=== PATIENT | male | born 1950 | race Caucasian/White ===

== ENCOUNTER 2017-05-06 07:16 | Inpatient (IN) | payer MEDICARE ==
[2017-05-06] VITALS (8 sets, daily range): BP systolic 74–116; BP diastolic 57–78; PULSE 89–105; RESP 16–18; TEMP 97.8; O2SAT 97–99
[~2017-05-06] VITALS: Ht 177.8 cm; Wt 84.0 kg
[2017-05-06] MEDS ORDERED: SODIUM CHLORIDE 0.9% FLUSH 10 ML FLUSH IVF PRN (07:30)
--- NOTE | 2017-05-06 07:32 | PD ---
HPI Chief Complaint: Seizure Time Seen by Provider: 07:30 Travel History International Travel<30 days: No Contact w/Intl Traveler<30days: No Traveled to known affect area: No History of Present Illness HPI This is a 66-year-old male with no reported past medical history, presents here after having what sounds like a seizure. According to paramedics the stated that he had uncontrolled tonic-clonic type activity. He was incontinent to urine. The patient was confused and altered when paramedics arrived. He is now back to his baseline. The patient denies any previous history of seizures. He denies any history of heavy alcohol use. The patient states he had a concussion when he was in his teens although has not had any previous significant traumatic brain injury. There are no other complaints time my examination. [facility] Social History Tobacco Use: No (denied) Allergies-Medications (Allergen,Severity, Reaction): Coded Allergies: No Known Allergies (Verified Allergy, Unknown, 05/06/17) Reported Meds & Prescriptions Reported Meds & Active Scripts Active No Active Prescriptions or Reported Medications Review of Systems Except as stated in HPI: all other systems reviewed are Neg General / Constitutional: No: Fever, Chills HENT: No: Headaches, Neck Pain Cardiovascular: No: Chest Pain or Discomfort, Palpitations Respiratory: No: Cough, Shortness of Breath Gastrointestinal: No: Nausea, Vomiting Genitourinary: Positive: Incontinence, No: Dysuria Musculoskeletal: No: Weakness, Pain Neurologic: Positive: Seizures (times one), No: Weakness, Dizziness, Headache Physical Exam Narrative GENERAL: Well-developed well-nourished male in no acute respiratory distress. SKIN: Focused skin assessment warm/dry. HEAD: Atraumatic. Normocephalic. EYES: Extraocular muscles were intact No scleral icterus. No injection or drainage. ENT: No nasal bleeding or discharge. Mucous membranes pink and moist. NECK: Trachea midline. Supple. CARDIOVASCULAR: Regular rate and rhythm. No murmur appreciated. RESPIRATORY: No accessory muscle use. Clear to auscultation. Breath sounds equal bilaterally. GASTROINTESTINAL: Abdomen soft, non-tender, nondistended. Hepatic and splenic margins not palpable. MUSCULOSKELETAL: No obvious deformities. No clubbing. No cyanosis. No edema. NEUROLOGICAL: Awake and alert. No obvious cranial nerve deficits. Motor grossly within normal limits. Normal speech. PSYCHIATRIC: Appropriate mood and affect; insight and judgment normal. Data Data Last Documented VS Vital Signs Date Time Temp Pulse Resp B/P (MAP) Pulse Ox O2 Delivery O2 Flow Rate FiO2 05/06/17 10:28 100 18 87/62 (70) 102 18 74/58 (63) 102 17 83/57 (66) 05/06/17 10:00 97.8 98 Room Air Orders Orders Complete Blood Count With Diff (05/06/17 07:18) Alcohol (Ethanol) (05/06/17 07:18) Drug Screen, Random Urine (05/06/17 07:18) Ct Brain W/O Iv Contrast(Rout) (05/06/17 ) Blood Glucose (05/06/17 07:18) Ecg Monitoring (05/06/17 07:18) Iv Access Insert/Monitor (05/06/17 07:18) Oximetry (05/06/17 07:18) Comprehensive Metabolic Panel (05/06/17 07:18) Sodium Chloride 0.9% Flush (Ns Flush) (05/06/17 07:30) Sodium Chlor 0.9% 1000 Ml Inj (Ns 1000 M (05/06/17 10:15) Admit To Inpatient (05/06/17 ) Code Status (05/06/17 10:14) Vital Signs (Adult) LAXMI.Q4H (05/06/17 10:14) Neuro Checks . ORDERED (05/06/17 10:14) Activity Oob With Assistance (05/06/17 10:14) Road Production General Manager / Telemetry LAXMI.Q8H (05/06/17 10:14) Intake + Output 06,14,22 (05/06/17 10:14) Notify Dr: Other (05/06/17 10:14) Resp Oxygen Nat C Titrat 1-4 L (05/06/17 ) Sodium Chloride 0.9% Flush (Ns Flush) (05/06/17 10:15) Sodium Chloride 0.9% Flush (Ns Flush) (05/06/17 21:00) Inpatient Certification (05/06/17 ) ^ Seizure Precautions (05/06/17 10:14) ^ Fall Precautions (05/06/17 10:14) Orthostatic Vital Signs (05/06/17 10:14) Admit Order (Ed Use Only) (05/06/17 10:41) Ondansetron Inj (Zofran Inj) (05/06/17 10:45) Creatine Kinase (Cpk) (05/06/17 10:41) Creatine Kinase (Cpk) (05/06/17 16:41) Troponin I (05/06/17 10:41) Troponin I (05/06/17 16:41) Electrocardiogram (05/06/17 10:41) Acetaminophen (Tylenol) (05/06/17 10:45) Vital Signs (Adult) Q4H (05/06/17 10:41) Activity Bed Rest (05/06/17 ) Neuro Checks Q4H (05/06/17 10:41) Sodium Chloride 0.9% Flush (Ns Flush) (05/06/17 10:45) Sodium Chloride 0.9% Flush (Ns Flush) (05/06/17 21:00) Eeg Study (05/06/17 ) Labs Laboratory Tests Test 05/06/17 07:30 White Blood Count 18.4 TH/MM3 Red Blood Count 2.78 MIL/MM3 Hemoglobin 8.8 GM/DL Hematocrit 26.1 % Mean Corpuscular Volume 93.7 FL Mean Corpuscular Hemoglobin 31.5 PG Mean Corpuscular Hemoglobin Concent 33.6 % Red Cell Distribution Width 13.7 % Platelet Count 247 TH/MM3 Mean Platelet Volume 8.0 FL Neutrophils (%) (Auto) 84.0 % Lymphocytes (%) (Auto) 9.2 % Monocytes (%) (Auto) 6.5 % Eosinophils (%) (Auto) 0.0 % Basophils (%) (Auto) 0.3 % Neutrophils # (Auto) 15.4 TH/MM3 Lymphocytes # (Auto) 1.7 TH/MM3 Monocytes # (Auto) 1.2 TH/MM3 Eosinophils # (Auto) 0.0 TH/MM3 Basophils # (Auto) 0.1 TH/MM3 CBC Comment AUTO DIFF Differential Comment AUTO DIFF CONFIRMED Platelet Estimate NORMAL Platelet Morphology Comment NORMAL Blood Urea Nitrogen 32 MG/DL Creatinine 2.38 MG/DL Random Glucose 254 MG/DL Total Protein 5.5 GM/DL Albumin 2.7 GM/DL Calcium Level 7.4 MG/DL Alkaline Phosphatase 77 U/L Aspartate Amino Transf (AST/SGOT) 12 U/L Alanine Aminotransferase (ALT/SGPT) 17 U/L Total Bilirubin 0.3 MG/DL Sodium Level 126 MEQ/L Potassium Level 4.4 MEQ/L Chloride Level 91 MEQ/L Carbon Dioxide Level 15.0 MEQ/L Anion Gap 20 MEQ/L Estimat Glomerular Filtration Rate 27 ML/MIN Protein Corrected Calcium 8.3 MG/DL Ethyl Alcohol Level LESS THAN 3 MG/DL MDM Medical Decision Making Medical Screen Exam Complete: Yes Emergency Medical Condition: Yes Differential Diagnosis New onset seizure versus metabolic derangement versus intracranial mass Narrative Course 66-year-old male who states he has no past medical history, presents today with complaints of what sounds like new onset seizure. The patient's states that he was getting up to use the restroom when he had a tonic-clonic episode and was incontinent to urine. The patient's head CT is negative. He is noted to be in acute renal failure. Patient also noted to be anemic. His blood pressure did drop into the 80s systolic. He appears to be extremely dry on exam. His blood sugar was also elevated over 200. The patient be admitted to the resident service. I discussed the case in detail with Dr. Cole and her resident team. At this point he looks like he is new onset diabetic with acute kidney injury, anemia and seizure versus syncope. Diagnosis Primary Impression: seizure versus syncope Additional Impressions: Diabetes mellitus, new onset Acute kidney injury Anemia Admitting Information Admitting Physician Requests: Admit Scripts No Active Prescriptions or Reported Meds Gregory Mason MD May 06, 2017 07:32
[2017-05-06 08:00] LABS: AUTOMATED NEUTROPHIL # 15.4 TH/MM3 (1.8-7.7); BASOPHIL # 0.1 TH/MM3 (0-0.2); BASOPHIL % 0.3 % (0.0-2.0); HEMATOCRIT 26.1 % (39.0-51.0); HEMOGLOBIN 8.8 GM/DL (13.0-17.0); LYMPH % 9.2 % (9.0-44.0); LYMPHOCYTE # 1.7 TH/MM3 (1.0-4.8); MEAN CELL VOLUME 93.7 FL (80.0-100.0); MEAN CORPUSCULAR HEMOGLOBIN 31.5 PG (27.0-34.0); MEAN CORPUSCULAR HGB CONC 33.6 % (32.0-36.0); MONO % 6.5 % (0.0-8.0); MONOCYTE # 1.2 TH/MM3 (0-0.9); PLATELET COUNT 247 TH/MM3 (150-450); RED BLOOD COUNT 2.78 MIL/MM3 (4.50-5.90); RED CELL DISTRIBUTION WIDTH 13.7 % (11.6-17.2); WHITE BLOOD COUNT 18.4 TH/MM3 (4.0-11.0)
[2017-05-06 08:15] LABS: ALBUMIN 2.7 GM/DL (3.4-5.0); ALT (GPT) 17 U/L (12-78); AST (GOT) 12 U/L (15-37); BLOOD UREA NITROGEN 32 MG/DL (7-18); CALCIUM 7.4 MG/DL (8.5-10.1); CHLORIDE 91 MEQ/L (98-107); CREATININE 2.38 MG/DL (0.60-1.30); GLOMERULAR FILTRATION RATE 27 ML/MIN (>89); GLUCOSE,RANDOM 254 MG/DL (74-106); SODIUM (NA) 126 MEQ/L (136-145)
[2017-05-06 08:44] LABS: ALKALINE PHOSPHATASE 77 U/L (45-117); CALCIUM-PROTEIN CORRECTED 8.3 MG/DL (8.5-10.1); TOTAL BILIRUBIN ADULT 0.3 MG/DL (0.2-1.0); TOTAL PROTEIN 5.5 GM/DL (6.4-8.2)
--- NOTE | 2017-05-06 09:18 | RADRPT ---
EXAM DATE/TIME: 05/06/2017 08:39 [facility] COMPARISON: No previous studies available for comparison. INDICATIONS : New onset seizure. RADIATION DOSE: 33.76 CTDIvol (mGy) MEDICAL HISTORY : None SURGICAL HISTORY : None. ENCOUNTER: Initial ACUITY: 1 day PAIN SCALE: 0/10 LOCATION: cranial TECHNIQUE: Multiple contiguous axial images were obtained of the head. Using automated exposure control and adj ustment of the mA and/or kV according to patient size, radiation dose was kept as low as reasonably a chievable to obtain optimal diagnostic quality images. DICOM format image data is available electro nically for review and comparison. FINDINGS: CEREBRUM: The ventricles are normal for age. No evidence of midline shift, mass lesion, hemorrhage or acute in farction. No extra-axial fluid collections are seen. POSTERIOR FOSSA: The cerebellum and brainstem are intact. The 4th ventricle is midline. The cerebellopontine angle i s unremarkable. EXTRACRANIAL: The visualized portion of the orbits is intact. SKULL: The calvaria is intact. No evidence of skull fracture. CONCLUSION: No acute intracranial disease. Abhinav Richter MD on May 06, 2017 at 9:15 Board Certified Radiologist. This report was verified electronically.
[2017-05-06] MEDS ORDERED: SODIUM CHLOR 0.9% 1000 ML INJ 1,000 ML IV ONE (10:15)
[2017-05-06] MEDS ORDERED: SODIUM CHLORIDE 0.9% FLUSH 10 ML FLUSH IV FLUSH PRN ×2 (10:15→10:45)
--- NOTE | 2017-05-06 10:24 | HHI.HP ---
HPI Service Family Medicine Primary Care Physician No Primary Care Physician Admission Diagnosis Diagnoses: (1) Seizure Chief Complaint: new onset seizures International Travel<30 Days: No Contact w/Intl Traveler<30days: No Known Affected Area: No History of Present Illness Mr Garcia is a 66YO male from [employer] with no reported PMHx who p/w recent complaints about low back pain that seemed to have resolved, but then had new onset seizures beginning yesterday. He is accompanied by his who reports that when he sat up yesterday at 8AM in bed his hands began to shake and then both hands contracted into his upper chest, his eyes rolled back and he passed out. After several minutes he would appear to respond to commands again. He had incontinence of urine at that time. The same or similar sequence of events occurred again at 1253PM and after bathing at 8PM yesterday, then at 0430AM and 0530AM this morning. He reports he did not lose consciousness during these episodes; however, his reports he has a fear of doctors and hospitals and did not agree to see a doctor until this morning. Pt has not had a BM since yesterday and has some tenderness in LLQ. He has no PCP. Denies hitting his head or other s/s of trauma during these episodes. His reports he had the flu that began on April 03 and continued for 10 days. Denies CP, SOB ( except when the episodes occur), N/V/D, constipation, black or bloody stools, or DVT pain. Review of Systems Constitutional: COMPLAINS OF: Diaphoretic episodes, Fatigue, Weight loss ( unexplained wt loss over the last 2 months), DENIES: Fever, Weight gain, Chills , Dizziness, Change in appetite Eyes: DENIES: Blurred vision, Diplopia, Double Vision Ears, nose, mouth, throat: COMPLAINS OF: Nasal discharge, DENIES: Tinnitus, Vertigo, Oral lesions, Throat pain Respiratory: COMPLAINS OF: Cough, DENIES: Snoring, Wheezing, Hemoptysis, Shortness of breath Cardiovascular: COMPLAINS OF: Syncope, DENIES: Chest pain, Palpitations Gastrointestinal: COMPLAINS OF: Abdominal pain, DENIES: Black stools, Bloody stools, Constipation, Diarrhea, Nausea, Vomiting Genitourinary: COMPLAINS OF: Urinary incontinence (with seizure), Testicular Swelling (hernia >2 years has been enlarging), DENIES: Sexual dysfunction, Urinary frequency, Urgency Musculoskeletal: COMPLAINS OF: Back pain (low back pain not too long ago), DENIES: Joint pain, Muscle aches Integumentary: DENIES: Rash Hematologic/lymphatic: DENIES: Bruising Neurologic: COMPLAINS OF: Seizures, DENIES: Headache, Paresthesias, Speech Problems, Tremor, Poor Balance Past Family Social History Past Medical History none Past Surgical History none Reported Medications alkaseltzer Allergies: Coded Allergies: No Known Allergies (Verified Allergy, Unknown, 05/06/17) Active Ordered Medications Current Medications Medications (Trade) Dose Ordered Sig/Krishna Route Start Time Stop Time Status Last Admin (NS Flush) 2 ml UNSCH PRN IVF 05/06/17 07:30 05/06/17 07:33 Family History mother is 90 father of liver cancer--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 SKIN: No rashes, ecchymoses or lesions. Cool and dry. HEAD: Atraumatic. Normocephalic. No temporal or scalp tenderness. EYES: Pupils equal round and reactive. Extraocular motions intact. No scleral icterus. No injection or drainage. ENT: Nose without bleeding, purulent drainage or septal hematoma. Throat without erythema, tonsillar hypertrophy or exudate. Uvula midline. Airway patent. NECK: Trachea midline. No lymphadenopathy. Supple, nontender, no meningeal signs. CARDIOVASCULAR: Regular rate and rhythm without murmurs, gallops, or rubs. RESPIRATORY: Clear to auscultation. Breath sounds equal bilaterally. No wheezes , rales, or rhonchi. No increased WOB. GASTROINTESTINAL: Abdomen not soft, but not tense or distended; mildly tender to palpation in the LLQ, nondistended. No hepato-splenomegaly, or palpable masses. No guarding. Normal BS. GENITOURINARY: grossly enlarged scrotum the size of a cantaloupe with tense underside on the left side, minimally reducible. MUSCULOSKELETAL: Extremities without clubbing, cyanosis, or edema. No joint tenderness, effusion, or edema noted. No calf tenderness. NEUROLOGICAL: Awake and alert. Normal cranial nerves II through XII exam. Motor and sensory grossly within normal limits. Five out of 5 muscle strength in all muscle groups. Normal speech. No pronator drift. Laboratory Laboratory Tests Test 05/06/17 07:30 White Blood Count 18.4 Red Blood Count 2.78 Hemoglobin 8.8 Hematocrit 26.1 Mean Corpuscular Volume 93.7 Mean Corpuscular Hemoglobin 31.5 Mean Corpuscular Hemoglobin Concent 33.6 Red Cell Distribution Width 13.7 Platelet Count 247 Mean Platelet Volume 8.0 Neutrophils (%) (Auto) 84.0 Lymphocytes (%) (Auto) 9.2 Monocytes (%) (Auto) 6.5 Eosinophils (%) (Auto) 0.0 Basophils (%) (Auto) 0.3 Neutrophils # (Auto) 15.4 Lymphocytes # (Auto) 1.7 Monocytes # (Auto) 1.2 Eosinophils # (Auto) 0.0 Basophils # (Auto) 0.1 CBC Comment AUTO DIFF Differential Comment AUTO DIFF CONFIRMED Platelet Estimate NORMAL Platelet Morphology Comment NORMAL Blood Urea Nitrogen 32 Creatinine 2.38 Random Glucose 254 Total Protein 5.5 Albumin 2.7 Calcium Level 7.4 Alkaline Phosphatase 77 Aspartate Amino Transf (AST/SGOT) 12 Alanine Aminotransferase (ALT/SGPT) 17 Total Bilirubin 0.3 Sodium Level 126 Potassium Level 4.4 Chloride Level 91 Carbon Dioxide Level 15.0 Anion Gap 20 Estimat Glomerular Filtration Rate 27 Protein Corrected Calcium 8.3 Ethyl Alcohol Level LESS THAN 3 Result Diagram: 05/06/17 0730 05/06/17729 Imaging Last Impressions Scrotum Ultrasound 05/06/17 0000 Signed Impressions: Service Date/Time: Saturday, May 06, 2017 12:09 - CONCLUSION: 1. Both testicles are within normal limits. 2. Bilateral inguinal hernias with loops of bowel entering the scrotal sac. 3. Small right hydrocele. 4. Bilateral varicoceles 5. Mildly heterogeneous left epididymis. Lopez Whittington MD Head CT 05/06/17 0000 Signed Impressions: Service Date/Time: Saturday, May 06, 2017 08:39 - CONCLUSION: No acute intracranial disease. Abhinav Richter MD Abdomen/Pelvis CT 05/06/17 0000 Signed Impressions: Service Date/Time: Saturday, May 06, 2017 12:41 - CONCLUSION: 1. Large infrarenal abdominal aortic aneurysm measuring 9.8 x 7.5 x 12.3 cm. Suspect rupture of the aneurysm as there is a large amount of left-sided retroperitoneal hemorrhage displacing the left kidney anteriorly. Angiogram recommended. 2. Large right inguinal hernia containing fat and multiple bowel loops. No signs of strangulation. Abhinav Richter MD Septic Shock Reassessment Heart: Regular rate and rhythm Lungs: Clear Skin: Warm, Dry Peripheral Pulses: Weak Right Dorsalis Pedis Weak Left Dorsalis Pedis Bounding Right Radial Bounding Left Radial Capillary Refill: <2 seconds Caprini VTE Risk Assessment Caprini VTE Risk Assessment: Mod/High Risk (score >= 2) Caprini Risk Assessment Model Point Value = 1 Point Value = 2 Point Value = 3 Point Value = 5 Age 41-60 Minor surgery BMI > 25 kg/m2 Swollen legs Varicose veins or History of unexplained or recurrent spontaneous Oral contraceptives or hormone replacement Sepsis (< 1 month) Serious lung disease, including pneumonia (< 1 month) Abnormal pulmonary function Acute myocardial infarction Congestive heart failure (< 1 month) History of inflammatory bowel disease Medical patient at bed rest Age 61-74 Arthroscopic surgery Major open surgery (> 45 min) Laparoscopic surgery (> 45 min) Malignancy Confined to bed (> 72 hours) Immobilizing plaster cast Central venous access Age >= 75 History of VTE Family history of VTE Factor V Leiden Prothrombin [id number] Lupus anticoagulant Anticardiolipin antibodies Elevated serum homocysteine Heparin-induced thrombocytopenia Other congenital or acquired thrombophilia Stroke (< 1 month) Elective arthroplasty Hip, pelvis, or leg fracture Acute spinal cord injury (< 1 month) Prophylaxis Regimen Total Risk Factor Score Risk Level Prophylaxis Regimen 0-1 Low Early ambulation 2 Moderate Order ONE of the following: *Sequential Compression Device (SCD) *Heparin 5000 units SQ BID 3-4 Higher Order ONE of the following medications: *Heparin 5000 units SQ TID *Enoxaparin/Lovenox 40 mg SQ daily (WT < 150 kg, CrCl > 30 mL/min) *Enoxaparin/Lovenox 30 mg SQ daily (WT < 150 kg, CrCl > 10-29 mL/min) *Enoxaparin/Lovenox 30 mg SQ BID (WT < 150 kg, CrCl > 30 mL/min) AND/OR *Sequential Compression Device (SCD) 5 or more Highest Order ONE of the following medications: *Heparin 5000 units SQ TID (Preferred with Epidurals) *Enoxaparin/Lovenox 40 mg SQ daily (WT < 150 kg, CrCl > 30 mL/min) *Enoxaparin/Lovenox 30 mg SQ daily (WT < 150 kg, CrCl > 10-29 mL/min) *Enoxaparin/Lovenox 30 mg SQ BID (WT < 150 kg, CrCl > 30 mL/min) AND *Sequential Compression Device (SCD) Assessment and Plan Assessment and Plan 66YO male with no reported PMHx who p/w 2 days of new onset seizures and found to have LLQ tenderness and large right scrotal hernia on exam; WBC 18.4 and pulse of 105 on admit meeting SIRS criteria; and found to have a ruptured AAA, bilateral inguinal hernias and right scrotal hernia with bowel loops not strangulated on CT abdomen/pelvis. DDx: ruptured AAA, right scrotal hernia. Code Status FULL CODE Discussed Condition With Mina Cole and Davey Problem List: (1) Ruptured abdominal aortic aneurysm (AAA) ICD Codes: I71.3 - Abdominal aortic aneurysm, ruptured Status: Acute Plan: CT scan showing 9.8 x 7.5 x 12.3 cm infrarenal ruptured aortic aneurysm (2) Seizure ICD Codes: R56.9 - Unspecified convulsions Status: Acute Plan: Initial impression of tonic-clonic movements with shaking hands and contractions of arms with approx 3 minutes of inactivity vs post-ictal state of not following commands appears seizure-like -Neurology consulted; appreciate recs (3) Hyponatremia ICD Codes: E87.1 - Hypo-osmolality and hyponatremia Status: Acute Plan: Na at 126 on admit with his reporting that pt rarely if ever drinks anything besides his morning coffee -NS IVF bolus (4) Scrotal hernia ICD Codes: K40.90 - Unilateral inguinal hernia, without obstruction or gangrene , not specified as recurrent Status: Chronic Plan: Pt reports scrotal hernia has been existent for >4 years but has enlarged in the last 2 years -US as per report above -CT scan as per above (right sided with intestinal bowel loops not strangulated) (5) Anemia ICD Codes: D64.9 - Anemia, unspecified Status: Acute Plan: -Heme occult blood test on rectal exam negative -Serum heme occult ordered (6) Diabetes mellitus, new onset ICD Codes: E11.9 - Type 2 diabetes mellitus without complications Status: Acute Plan: Blood sugar on admit elevated to 254 -Await surgery before pursuing (7) Acute kidney injury ICD Codes: N17.9 - Acute kidney failure, unspecified Status: Acute Plan: Cr 2.38 on admit; likely 2/2 mass effect from AAA -IVF (8) FEN/GI/PPx Status: Acute Plan: Diet: NPO for surgery GI: none PPx: Bilateral SCDs; Heparin Physician Certification 2 Midnight Certification Type: Admission for Inpatient Services Order for Inpatient Services The services are ordered in accordance with Medicare regulations or non- Medicare payer requirements, as applicable. In the case of services not specified as inpatient-only, they are appropriately provided as inpatient services in accordance with the 2-midnight benchmark. Estimated LOS (days): 2 days is the estimated time the patient will need to remain in the hospital, assuming treatment plan goals are met and no additional complications. Post-Hospital Plan: Home Problem Qualifiers (1) Anemia: Qualified Codes: D64.9 - Anemia, unspecified Gama Handy MD R1 May 06, 2017 10:24
[2017-05-06] MEDS ORDERED: ACETAMINOPHEN 325 MG TAB PO PRN (10:45)
[2017-05-06] MEDS ORDERED: ONDANSETRON HCL 4 MG/2 ML VIAL IVP PRN (10:45)
[2017-05-06] MEDS ORDERED: SODIUM CHLOR 0.9% 1000 ML INJ 1,000 ML IV SCH (11:00)
--- NOTE | 2017-05-06 11:16 | HHI.FPPN ---
Subjective Remarks Pt. seen, examined and discussed with the medicine team. This is a 66 yo male here with his . Brought via [facility] due to seizure-like activity at home. describes three episodes where patient sat up and became a little sweaty and clenched his arms to his chest and was a little shaky and had delayed verbal responses. One episode occurred when he was standing to void his bladder; helped him ease to floor and he then went back to lay down. He was incontinent with the first episode but he states he did not lose consciousness with any of these events. called [facility] after the rist event but patient refused to be transported. After third episode he agreed to present to the hospital. He works as a [employer], smokes 1.5 ppd for over 40 years, occasional etoh, no illicits. Denies change in his stools and denies blood in urine. Minimal water intake. No known past medical illnesses, only surgery was on 5th finger, he has a hernia since the which is enlarging into his scrotum. Has been fearful of having surgery. NKDA, only medication is yolanda-seltzer cold. He had an upper respiratory illness for 10 days in the recent past. See History and physical examination for this admission for additional past, family, social history and ROS. Objective Vitals Vital Signs Date Time Temp Pulse Resp B/P (MAP) Pulse Ox O2 Delivery O2 Flow Rate FiO2 05/06/17 10:28 100 18 87/62 (70) 102 18 74/58 (63) 102 17 83/57 (66) 05/06/17 10:00 97.8 97 17 95/57 (70) 98 Room Air 05/06/17 08:20 97.8 92 16 116/78 (91) 98 Room Air 05/06/17 07:31 16 99 Room Air 05/06/17 07:25 105 17 99 Room Air 05/06/17 07:21 97.8 105 16 107/68 (81) 99 Result Diagram: 05/06/17 0730 05/06/17 0730 Imaging Last [address] 05/06/17 0000 Signed Impressions: Service Date/Time: Saturday, May 06, 2017 08:39 - CONCLUSION: No acute intracranial disease. Abhinav Richter MD Objective Remarks O. CONSTITUTIONAL/GEN: very pale, normally nourished, in NAD. EYES: conjunctiva pale, PERRLA, EOMI. ENT: Mouth and pharynx normal. Dentures, lower denture missing. NECK: supple LUNGS: clear A-P, respiratory effort is normal. CARDIOVASCULAR: Tachycardic without murmur or gallop. No significant edema. GI/ABD: BS +, nontender. : no CVA tenderness, massive hernia into the right scrotum, left testis palpable. Rectal exam is heme negative. NEURO: No focal deficits. SKIN: color pale, no rashes noted. HEME/LYMPH: no bruising, petechia or significant adenopathy MUSC: back is normal in appearance. Extremities are normal in appearance. PSYCH/MENTAL STATUS: Alert and oriented x 3. A/P Assessment and Plan 66 yo male with new onset seizure-like activity, possibly related to hypotension and micturition syncope, with ARF and anemia and massive right inguinal hernia. See orders. Attending Attestation Patient seen and examined. Case reviewed and discussed with the resident team. Agree with plan of care as discussed with me and documented in the resident note. Problem List: (1) Seizure ICD Codes: R56.9 - Unspecified convulsions Rae Cole MD May 06, 2017 11:16
--- NOTE | 2017-05-06 11:55 | EKG ---
Date Performed: 05/06/2017 Time Performed: 07:30:05 PTAGE: 66 years EKG: SINUS TACHYCARDIA NONSPECIFIC ST & T-WAVE ABNORMALITY ABNORMAL RHYTHM ECG NO PREVIOUS TRACING DOCTOR: Shine Kaminski Interpretating Date/Time 05/06/2017 11:53:11
[2017-05-06] MEDS ORDERED: HEPARIN SODIUM - SQ 10,000 UNITS/ML VIAL SQ SCH (12:00)
[2017-05-06 12:41] LABS: LACTIC ACID SEPSIS PROTOCOL 3.7 mmol/L (0.4-2.0)
--- NOTE | 2017-05-06 12:52 | RADRPT ---
EXAM DATE/TIME: 05/06/2017 12:09 [facility] COMPARISON: No previous studies available for comparison. INDICATIONS : Inguinal hernias bilaterally. MEDICAL HISTORY : Seizures. Abdominal pain. Testicular mass. SURGICAL HISTORY : None. ENCOUNTER: Initial ACUITY: >1 year PAIN SCORE: 3/10 LOCATION: Bilateral testicles. MEASUREMENTS: RIGHT TESTICLE: 4.1 x 1.9 x 4.0cm LEFT TESTICLE: 3.7 x 1.6 x 4.4cm FINDINGS: RIGHT TESTICLE: Homogeneous echotexture without intra or extratesticular mass. Blood flow is symmetric and within no rmal limits. Small hydrocele. There is a varicocele.. Epididymis is within normal limits. Also noted is a right inguinal hernia containing loops of bowel which are in the scrotal sac. LEFT TESTICLE: Homogeneous echotexture without intra or extratesticular mass. Blood flow is symmetric and within no rmal limits. No hydrocele. There is a varicocele. Epididymis is mildly heterogeneous.. Also noted is a left internal hernia containing loops of bowel going into the scrotal sac SCROTUM: Within normal limits. CONCLUSION: 1. Both testicles are within normal limits. 2. Bilateral inguinal hernias with loops of bowel entering the scrotal sac. 3. Small right hydrocele. 4. Bilateral varicoceles 5. Mildly heterogeneous left epididymis. Lopze Whittington MD on May 06, 2017 at 12:47 Board Certified Radiologist. This report was verified electronically.
--- NOTE | 2017-05-06 13:12 | RADRPT ---
EXAM DATE/TIME: 05/06/2017 12:41 [facility] COMPARISON: No previous studies available for comparison. INDICATIONS : Left lower abdomen pain today. ORAL CONTRAST: No oral contrast ingested. RADIATION DOSE: 6.77 CTDIvol (mGy) MEDICAL HISTORY : Seizures. SURGICAL HISTORY : None. ENCOUNTER: Initial ACUITY: 1 day PAIN SCALE: 8/10 LOCATION: Left lower quadrant TECHNIQUE: Volumetric scanning of the abdomen and pelvis was performed. Using automated exposure control and ad justment of the mA and/or kV according to patient size, radiation dose was kept as low as reasonably achievable to obtain optimal diagnostic quality images. DICOM format image data is available electro nically for review and comparison. FINDINGS: LOWER LUNGS: Small left pleural effusion. Left basilar atelectasis. LIVER: Homogeneous density without lesion. There is no dilation of the biliary tree. No calcified gallston es. SPLEEN: Normal size without lesion. PANCREAS: Within normal limits. KIDNEYS: Left kidney displaced anteriorly secondary to left retroperitoneal hemorrhage. There is no mass, sto ne, or hydronephrosis. ADRENAL GLANDS: Within normal limits. VASCULAR: Large infrarenal abdominal aortic aneurysm measures 10.3 x 9.1 cm and spans in the craniocaudal dimen imani 12.3 cm. There is hemorrhage in the retroperitoneum posterior to the left kidney which displaces the left kidney anteriorly measuring approximately 9.8 x 1.5 cm. BOWEL/MESENTERY: The stomach, small bowel, and colon demonstrate no acute abnormality. There is no free intraperitone al air or fluid. ABDOMINAL WALL: Within normal limits. RETROPERITONEUM: There is no lymphadenopathy. BLADDER: No wall thickening or mass. REPRODUCTIVE: Within normal limits. INGUINAL: Large right inguinal hernia containing bowel loops and fat. No signs of strangulation. Small fat-cont aining left inguinal hernia containing minimal fluid.. MUSCULOSKELETAL: Within normal limits for patient age. CONCLUSION: 1. Large infrarenal abdominal aortic aneurysm measuring 9.8 x 7.5 x 12.3 cm. Suspect rupture of the a neurysm as there is a large amount of left-sided retroperitoneal hemorrhage displacing the left kidne y anteriorly. Angiogram recommended. 2. Large right inguinal hernia containing fat and multiple bowel loops. No signs of strangulation. Abhinav Richter MD on May 06, 2017 at 13:03 Board Certified Radiologist. This report was verified electronically.
[2017-05-06] MEDS ORDERED: SODIUM CHLOR 0.9% 250 ML INJ 250 ML IV ONE (13:15)
--- NOTE | 2017-05-06 13:30 | PD.VS.CON ---
History of Present Illness Chief Complaint: syncope Consult Requested by: Dr. Mason, ED History of Present Illness 66 yo male with no known medical troubles "except coughing" who presented after a syncopal episode today. Got a CT A/P that showed a ruptured TAAA. Past/Family/Social History Past Medical History none per patient Past Surgical History none per patient Social History smoker Family History no known aneurysmal disease Home Medications No Active Prescriptions or Reported Meds Coded Allergies: No Known Allergies (Verified Allergy, Unknown, 05/06/17) Review of Systems Respiratory: COMPLAINS OF: Cough Neurologic: COMPLAINS OF: Seizures Physical Exam Vitals/I&O Date Time Temp Pulse Resp B/P (MAP) Pulse Ox O2 Delivery O2 Flow Rate FiO2 05/06/17 11:01 97.8 89 16 116/78 (91) 97 Room Air 05/06/17 10:28 100 18 87/62 (70) 102 18 74/58 (63) 102 17 83/57 (66) 05/06/17 10:00 97.8 97 17 95/57 (70) 98 Room Air 05/06/17 08:20 97.8 92 16 116/78 (91) 98 Room Air 05/06/17 07:31 16 99 Room Air 05/06/17 07:25 105 17 99 Room Air 05/06/17 07:21 97.8 105 16 107/68 (81) 99 05/06/17 05/06/17 05/06/17 07:00 15:00 23:00 Intake Total 1000 ml Balance 1000 ml Neuro: resting comfortably, no distress, HOOKS HEENT: NC/AT Neck: no JVD Heart: reg rate Lungs: clear B Abdomen: nontender, palpable pulsatile mass Extremities: HOOKS Laboratory Tests Test 05/06/17 07:30 05/06/17 12:00 White Blood Count 18.4 Red Blood Count 2.78 Hemoglobin 8.8 Hematocrit 26.1 Mean Corpuscular Volume 93.7 Mean Corpuscular Hemoglobin 31.5 Mean Corpuscular Hemoglobin Concent 33.6 Red Cell Distribution Width 13.7 Platelet Count 247 Mean Platelet Volume 8.0 Neutrophils (%) (Auto) 84.0 Lymphocytes (%) (Auto) 9.2 Monocytes (%) (Auto) 6.5 Eosinophils (%) (Auto) 0.0 Basophils (%) (Auto) 0.3 Neutrophils # (Auto) 15.4 Lymphocytes # (Auto) 1.7 Monocytes # (Auto) 1.2 Eosinophils # (Auto) 0.0 Basophils # (Auto) 0.1 CBC Comment AUTO DIFF Differential Comment AUTO DIFF CONFIRMED Platelet Estimate NORMAL Platelet Morphology Comment NORMAL Blood Urea Nitrogen 32 Creatinine 2.38 Random Glucose 254 Total Protein 5.5 Albumin 2.7 Calcium Level 7.4 Alkaline Phosphatase 77 Aspartate Amino Transf (AST/SGOT) 12 Alanine Aminotransferase (ALT/SGPT) 17 Total Bilirubin 0.3 Sodium Level 126 Potassium Level 4.4 Chloride Level 91 Carbon Dioxide Level 15.0 Anion Gap 20 Estimat Glomerular Filtration Rate 27 Protein Corrected Calcium 8.3 Ethyl Alcohol Level LESS THAN 3 Lactic Acid Level 3.7 Last 48 hours Impressions Scrotum Ultrasound 05/06/17 Signed Impressions: Service Date/Time: Saturday, May 06, 2017 12:09 - CONCLUSION: 1. Both testicles are within normal limits. 2. Bilateral inguinal hernias with loops of bowel entering the scrotal sac. 3. Small right hydrocele. 4. Bilateral varicoceles 5. Mildly heterogeneous left epididymis. Lopez Whittington MD Head CT 05/06/17 0000 Signed Impressions: Service Date/Time: Saturday, May 06, 2017 08:39 - CONCLUSION: No acute intracranial disease. Abhinav Richter MD Abdomen/Pelvis CT 05/06/17 0000 Signed Impressions: Service Date/Time: Saturday, May 06, 2017 12:41 - CONCLUSION: 1. Large infrarenal abdominal aortic aneurysm measuring 9.8 x 7.5 x 12.3 cm. Suspect rupture of the aneurysm as there is a large amount of left-sided retroperitoneal hemorrhage displacing the left kidney anteriorly. Angiogram recommended. 2. Large right inguinal hernia containing fat and multiple bowel loops. No signs of strangulation. Abhinav Richter MD Assessment and Plan Plan Ruptured juxtarenal AAA Emergent surgery Discussed with patient To OR Kurt Bliss MD May 06, 2017 13:30
[2017-05-06] MEDS ORDERED: HEPARIN SODIUM - IV 10,000 UNITS/10 ML VIAL ONE (13:33)
[2017-05-06] MEDS ORDERED: PROTAMINE SULFATE 50 MG/5 ML VIAL ONE (13:33)
[2017-05-06] MEDS ORDERED: HEPARIN-NS/PF INJ 500 ML ONE (13:33)
[2017-05-06] MEDS ORDERED: MANNITOL INJ 0 ML ONE (13:53)
[2017-05-06] MEDS ORDERED: SODIUM BICARBONATE 8.4% INJ 50 MEQ/50 ML SYR ONE (13:55)
[2017-05-06] MEDS ORDERED: CALCIUM CHLORIDE 10% SOLN 1 GRAM/10 ML SYR ONE (13:55)
[2017-05-06] MEDS ORDERED: ETOMIDATE 20 MG/10 ML VIAL ONE (14:05)
--- NOTE | 2017-05-06 14:05 | MG ---
cc: KRYSTIN ZHANG Lab No: [id number] Date: 05/06/2017 Age: Sex: M Race: TECHNIQUE 17-channel EEG. DESCRIPTION: The background rhythm reveals symmetrical alpha rhythm, frequency is 8-10 Hz, amplitude is about 20 microvolts. There is some mild slowing in the theta frequency during drowsiness. No lateralizing features are identified and no epileptiform features are seen. There is some slowing in the theta range. Hyperventilation was done with no change in the background rhythm. Photic results are normal driving response. INTERPRETATION Normal EEG. MD KELTON Espinoza/[email or web address] /1:58 PM /2:07 PM
[2017-05-06] MEDS ORDERED: FUROSEMIDE 40 MG/4 ML VIAL ONE (14:07)
[2017-05-06 14:17] LABS: TROPONIN I 0.15 NG/ML (0.02-0.05)
[2017-05-06] MEDS ORDERED: SODIUM BICARBONATE 8.4% INJ 200 ML ONE (14:45)
[2017-05-06] MEDS ORDERED: ceFAZolin 2 GM PREMIX 50 ML IV ONE (16:34)
--- NOTE | 2017-05-06 17:20 | HHI.PR ---
Immediate Post Op Note Procedure Date: May 06, 2017 Pre Op Diagnosis: Ruptured TAAA Post Op Diagnosis: Ruptured TAAA Surgeon: Kurt Bliss Spa Consultant(s): Tomi Gomes Procedure: Thoracotomy with intraoperative cardiac massage Findings: Free rupture involving paravisceral aorta and into chest Additional Information: Pt on table Complications: Intraoperative Specimen(s) removed: none for pathology Estimated blood loss: 15 Liters Anesthesia: General Drains: None Patient to: Other Date/Time of Procedure: SEE SURGICAL CARE RECORD Kurt Bliss MD May 06, 2017 17:20
[2017-05-06] MEDS ORDERED: SODIUM CHLORIDE 0.9% FLUSH 10 ML FLUSH IV FLUSH SCH ×2 (21:00)
--- NOTE | 2017-05-07 07:31 | MP ---
cc: KURT BLISS MD DATE OF SURGERY 05/06/2017 PREOPERATIVE DIAGNOSIS Thoracoabdominal aortic aneurysm. POSTOPERATIVE DIAGNOSIS Thoracoabdominal aortic aneurysm. PROCEDURE Thoracotomy with retroperitoneal exploration and open cardiac massage. ATTENDING SURGEON Kurt Bliss MD PSYCHIATRY ADULT PHYSICIAN SURGEON Harinder Tirado ANESTHESIA General. INDICATIONS Mr. Garcia is a 66-year-old gentleman with a ruptured 10 cm thoracoabdominal aortic aneurysm. He is taken to the operating room emergently. A thorough discussion was had with the patient and about the risks and benefits of operation. DESCRIPTION OF PROCEDURE Informed consent was obtained from the patient. He was taken to the operating room and placed supine on the operating room table. We performed appropriate time-out and the patient was administered 2 grams of Ancef. During induction of anesthesia, the patient's blood pressure went to 50 mm systolic abruptly and he was placed in thoracoabdominal position and Betadine was prepped on the skin and a thoracotomy was performed. The lung was entered with a thin blade and the ribs were spread manually and DeBakey aortic clamp was placed on the descending thoracic aorta. We retained heart rate and a blood pressure and the incision was extended down caudally in the retroperitoneum. The kidney was mobilized as was the spleen. An immense amount of blood was then evacuated from the retroperitoneum and the clamp was placed further down on the distal descending thoracic aorta. At this point the patient suffered multiple cardiac arrests and open cardiac massage was performed but despite maximal efforts there was no sustainable viable rhythm. The patient in the operating room. An appropriate conversation was had with the patient's immediately postoperatively. Kurt Bliss MD RJF/SSB /5:32 PM /7:21 AM
--- NOTE | 2017-05-07 07:31 | MP ---
cc: KURT BLISS MD DATE OF SURGERY 05/06/2017 PREOPERATIVE DIAGNOSIS Thoracoabdominal aortic aneurysm. POSTOPERATIVE DIAGNOSIS Thoracoabdominal aortic aneurysm. PROCEDURE Thoracotomy with retroperitoneal exploration and open cardiac massage. ATTENDING SURGEON Kurt Bliss MD CLINICAL DIETETIC TECHNICIAN SURGEON Harinder Tirado ANESTHESIA General. INDICATIONS Mr. Garcia is a 66-year-old gentleman with a ruptured 10 cm thoracoabdominal aortic aneurysm. He is taken to the operating room emergently. A thorough discussion was had with the patient and about the risks and benefits of operation. DESCRIPTION OF PROCEDURE Informed consent was obtained from the patient. He was taken to the operating room and placed supine on the operating room table. We performed appropriate time-out and the patient was administered 2 grams of Ancef. During induction of anesthesia, the patient's blood pressure went to 50 mm systolic abruptly and he was placed in thoracoabdominal position and Betadine was prepped on the skin and a thoracotomy was performed. The lung was entered with a thin blade and the ribs were spread manually and DeBakey aortic clamp was placed on the descending thoracic aorta. We retained heart rate and a blood pressure and the incision was extended down caudally in the retroperitoneum. The kidney was mobilized as was the spleen. An immense amount of blood was then evacuated from the retroperitoneum and the clamp was placed further down on the distal descending thoracic aorta. At this point the patient suffered multiple cardiac arrests and open cardiac massage was performed but despite maximal efforts there was no sustainable viable rhythm. The patient in the operating room. An appropriate conversation was had with the patient's immediately postoperatively. Kurt Bliss MD RJF/SSB /5:32 PM /7:21 AM
== END 2017-05-06 14:54 | disposition expired | DRG 271 ==
LOC: NEPE 07:16 → NEDA 10:45
PROVIDERS: ADMIT Family Medicine; ATTEND Family Medicine
PROC: 0W9H0ZZ Drainage of Retroperitoneum, Open Approach (ICD-10-PCS; 2017-05-06)
PROC: 02V Heart and Great Vessels, Restriction (ICD-10-PCS; 2017-05-06)
PROC: 02QA0ZZ Repair Heart, Open Approach (ICD-10-PCS; principal; 2017-05-06 14:00)
DX: I71.5 Thoracoabdominal aortic aneurysm, ruptured (principal); N17.9 Acute kidney failure, unspecified; I97.711 Intraoperative cardiac arrest during other surgery; E87.1 Hypo-osmolality and hyponatremia; R56.9 Unspecified convulsions; E11.9 Type 2 diabetes mellitus without complications; D64.9 Anemia, unspecified; K40.20 Bilateral inguinal hernia, without obstruction or gangrene, not specified as recurrent; R32 Unspecified urinary incontinence; F17.210 Nicotine dependence, cigarettes, uncomplicated
CPT/HCPCS: 70450; 74176; 76870; 80053; 80307; 82550; 82552; 83605; 84484; 85025; 86850; 86900; 86901; 86920; 86927; 93005; 93975; 95819; J0690; J1644; J1940; J2150; J2720; J7030; P9016; P9017